=== PATIENT | male | born 1960 | race Two or more races ===

== ENCOUNTER → 2021-03-10 | Outpatient (CLI) | payer OTHER | END | disposition home or self-care (01) | LOC: EDSTATUS 10:00 → RAD 10:04 | PROVIDERS: ATTEND Physician Assistant | DX: R16.2 Hepatomegaly with splenomegaly, not elsewhere classified (principal); R10.13 Epigastric pain; R10.11 Right upper quadrant pain; D12.6 Benign neoplasm of colon, unspecified | CPT/HCPCS: 76705 ==